=== PATIENT | female | born 1990 | race Caucasian/White ===

== ENCOUNTER 2019-09-15 16:50 | Emergency (ER) | payer OTHER ==
[~2019-09-15] VITALS: Ht 157.5 cm; Wt 95.5 kg
[2019-09-15 16:51] VITALS: BP 127/80
[2019-09-15] MEDS ORDERED: IBUP-1022 PO (17:03)
[2019-09-15] MEDS ORDERED: ACETAMINOPHEN TAB 650MG DOSE (2X325MG) PO ONE (20:00)
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
[2019-09-15] MEDS ORDERED: TIZA4CAP PO (22:49)
[2019-09-15] MEDS ORDERED: tiZANidine 4 MG TAB PO ONE (23:00)
== END 2019-09-15 23:04 | disposition home or self-care (01) ==
LOC: M ED 16:50
DX: S29.012A Strain of muscle and tendon of back wall of thorax, initial encounter (principal); S16.1XXA Strain of muscle, fascia and tendon at neck level, initial encounter; V48.5XXA Car driver injured in noncollision transport accident in traffic accident, initial encounter; Y92.9 Unspecified place or not applicable; Y99.9 Unspecified external cause status

== ENCOUNTER → 2019-09-24 | Outpatient (REF) | payer OTHER ==
[~2019-09-24] MED LIST: IBUP-1022 PO; TIZA4CAP PO
== END ==
LOC: M SFHCWAGY 17:18
PROVIDERS: ATTEND Advanced Practice Midwife
DX: Z12.4 Encounter for screening for malignant neoplasm of cervix (principal)

== ENCOUNTER → 2019-10-03 | Outpatient (CLI) | payer OTHER ==
--- NOTE | 2019-10-03 11:08 | REP ---
Clinical: Pelvic pain. Technique: Transabdominal pelvic ultrasound examination followed by transvaginal examination for better evaluation of the endometrium and adnexa with color evaluation of the ovaries. Findings: Bladder is under distended but grossly normal in appearance. Normal anteverted uterus measures 6.9 x 3.2 x 4.5 cm. Endometrial complex measures 3.9 mm thickness. No discrete uterine or endometrial abnormality noted. The bilateral ovaries are normal in appearance and vascularity without torsion. Normal bilateral follicles noted. Right ovary measures 3.0 x 1.9 x 2.3 cm. Left ovary measures 2.9 x 1.6 x 2.0 cm. No significant pelvic free fluid or adnexal mass lesion identified. Impression: Normal pelvic ultrasound.
== END ==
LOC: M WHC 09:55
PROVIDERS: ATTEND Advanced Practice Midwife
DX: R10.2 Pelvic and perineal pain (principal)